=== PATIENT | male | born 1970 | race Caucasian/White ===

== ENCOUNTER 2018-01-01 15:08 | Emergency (ER) | payer MEDICAID, OTHER ==
[~2018-01-01] VITALS: Ht 177.8 cm; Wt 83.9 kg
[2018-01-01] MEDS ORDERED: NS IV 1000 ML 1,000 ML IV ONE (15:46)
[2018-01-01 15:58] LABS: BASOPHILS # (AUTO) 0.1 10^3/uL (0.0-0.1); BASOPHILS % (AUTO) 1 % (0-10); EOSINOPHILS # (AUTO) 0.3 10^3/uL (0.0-0.3); EOSINOPHILS % (AUTO) 3 % (0-10); HEMATOCRIT 39 % (40-54); HEMOGLOBIN 13.6 G/DL (13.3-17.7); LYMPHOCYTES # (AUTO) 2.1 X 10^3 (1.0-4.0); LYMPHOCYTES % (AUTO) 23 % (12-44); MEAN CORPUSCULAR HEMOGLOBIN 32 PG (25-34); MEAN CORPUSCULAR HGB CONC 35 G/DL (32-36); MEAN CORPUSCULAR VOLUME 92 FL (80-99); MEAN PLATELET VOLUME 9.3 FL (7.4-10.4); MONOCYTES # (AUTO) 1.1 X 10^3 (0.0-1.0); MONOCYTES % (AUTO) 12 % (0-12); NEUTROPHILS # (AUTO) 5.5 X 10^3 (1.8-7.8); NEUTROPHILS % (AUTO) 61 % (42-75); PLATELET COUNT 243 10^3/uL (130-400); RED BLOOD COUNT 4.22 10^6/uL (4.35-5.85); RED CELL DISTRIBUTION WIDTH 13.2 % (10.0-14.5)
[2018-01-01] MEDS ORDERED: TETANUS,DIPTH,PERTUSS P/F (BOOSTRIX) 0.5 ML VIAL IM ONE (16:00)
[2018-01-01] MEDS ORDERED: cefTRIAXone INJECTION 1,000 MG in NS (IVPB) 50 ML IV ONE (16:00)
--- NOTE | 2018-01-01 16:01 | ED General ---
General Stated Complaint: STOMACH PAIN/L FOOT BIG TOE ISSUES Source of Information: Patient Exam Limitations: No Limitations, Intoxication (consumed 8-9 beers and a pint of liquor earlier today) (JONATHAN BELTRE MEDICAL STUDENT) History of Present Illness Date Seen by Provider: Jan 01, 2018 Time Seen by Provider: 15:40 Initial Comments Pt is 47 yo homeless alcoholic male who presents c/o abd pain onset 2-3 days ago. Describes the pain as diffuse and constant, only improving recently with an OTC anti-diarrheal. Experienced several episodes of diarrhea associated with the pain. He denies nauseated, one episode of nausea which he believes was associated with some food he ingested. States this pain & diarrhea first began when he awoke having soiled himself at a [employer] in [place], where he was evaluated by EMS. His abd pain does not radiate. He is an alcoholic, typically consuming 1-2 fifths of liquor daily. He has consumed 8-9 beers and a pint of liquor today. He also complains of left foot pain associated with an avulsed toenail from his left great toe. He primarily walks for transportation, and was wearing shoes that were too small, which he believes caused the nail to fall off. Timing/Duration: 2-3 Days Severity: Moderate Modifying Factors: improves with Medication (improved with OTC anti-diarrheal ) Associated Systoms: No Chest Pain, No Fever/Chills, No Nausea/Vomiting; Other ( L foot pain & nail avulsion) (JONATHAN BELTRE MEDICAL STUDENT) Allergies and Home Medications Allergies Coded Allergies: No Known Drug Allergies (Unverified , 01/01/18) Home Medications Famotidine 20 Mg Tablet, 20 MG PO BID Prescribed by: MEREDITH QUINTANILLA on 01/01/181710 Sulfamethoxazole/Trimethoprim 1 Each Tablet, 1 EACH PO BID Prescribed by: MEREDITH QUINTANILLA on 01/01/18 171 Patient Home Medication List Home Medication List Reviewed: Yes (MEREDITH GUILLERMO MD) Review of Systems Constitutional: No chills, No fever Respiratory: No cough, No short of breath Cardiovascular: No chest pain Gastrointestinal: abdominal pain; No constipation; diarrhea; No nausea; vomiting (single episode) Skin: pruritus (near site of prior tick bite); No rash (JONATHAN BELTRE MEDICAL STUDENT) Constitutional: other (intoxicated) EENTM: no symptoms reported Respiratory: no symptoms reported Cardiovascular: no symptoms reported Gastrointestinal: see HPI Genitourinary: no symptoms reported Musculoskeletal: no symptoms reported Skin: see HPI Psychiatric/Neurological: No Symptoms Reported Hematologic/Lymphatic: No Symptoms Reported (MEREDITH GUILLERMO MD) Past Omhvrri-Khcbvr-Cvfefj Hx Past Med/Social Hx: Reviewed and Corrections made (MEREDITH GUILLERMO MD) Patient Social History Recent Foreign Travel: No Contact w/Someone Who Travel: No (JONATHAN BELTRE MEDICAL STUDENT) Alcohol Use: Rarely Uses Alcohol Beverage of Choice: Beer, Other (Drinks beer and hard alcohol) Recreational Drug Use: No (MEREDITH GUILLERMO MD) Past Medical History Surgeries: Yes (Knee, shoulder, face, thumb) Respiratory: No Cardiac: No Neurological: No Reproductive Disorders: No Genitourinary: No Gastrointestinal: No Musculoskeletal: No Endocrine: No HEENT: No Cancer: No Psychosocial: Yes (alcoholism) (MEREDITH GUILLERMO MD) Physical Exam Vital Signs Vital Signs - First Documented 01/01/18 15:15 Temp 98.3 Pulse 101 Resp 18 B/P (MAP) 111/83 (92) Pulse Ox 99 (MEREDITH GUILLERMO MD) Vital Signs Capillary Refill : (JONATHAN BELTRE MEDICAL STUDENT) Height, Weight, BMI Height: '" Weight: lbs. oz. kg; BMI Method: (JONATHAN BELTRE MEDICAL STUDENT) General Appearance: No Apparent Distress, WD/WN, Other (intoxicated) HEENT: PERRL/EOMI, Normal ENT Inspection Neck: Normal Inspection Respiratory: Lungs Clear, Normal Breath Sounds, No Accessory Muscle Use, No Respiratory Distress Cardiovascular: Regular Rate, Rhythm, No Edema, No Murmur Gastrointestinal: Normal Bowel Sounds, Soft, Tenderness (mild in the epigastric region) Extremity: Pedal Edema, Other (complete avulsion of the left great toenail with serosanguineous drainage) Neurologic/Psychiatric: Alert, Oriented x3, No Motor/Sensory Deficits, Normal Mood/Affect, manager sterile processing II-XII Norm as Tested, Other (alert and oriented but intoxicated) Skin: Normal Color, Warm/Dry (MEREDITH GUILLERMO MD) Progress/Results/Core Measures Suspected Sepsis SIRS Temperature: Pulse: Respiratory Rate: Laboratory Tests 01/01/18 15:50: White Blood Count 9.0 Blood Pressure / Mean: Laboratory Tests 01/01/18 15:50: Creatinine 0.82, Platelet Count 243, Total Bilirubin 0.5 (ALEX,JONATHAN MEDICAL STUDENT) Results/Orders Lab Results Laboratory Tests Test 01/01/18 15:50 Range/Units White Blood Count 9.0 4.3-11.0 10^3/uL Red Blood Count 4.22 L 4.35-5.85 10^6/uL Hemoglobin 13.6 13.3-17.7 G/DL Hematocrit 39 L 40-54 % Mean Corpuscular Volume 92 80-99 FL Mean Corpuscular Hemoglobin 32 25-34 PG Mean Corpuscular Hemoglobin Concent 35 32-36 G/DL Red Cell Distribution Width 13.2 10.0-14.5 % Platelet Count 243 130-400 10^3/uL Mean Platelet Volume 9.3 7.4-10.4 FL Neutrophils (%) (Auto) 61 42-75 % Lymphocytes (%) (Auto) 23 12-44 % Monocytes (%) (Auto) 12 0-12 % Eosinophils (%) (Auto) 3 0-10 % Basophils (%) (Auto) 1 0-10 % Neutrophils # (Auto) 5.5 1.8-7.8 X 10^3 Lymphocytes # (Auto) 2.1 1.0-4.0 X 10^3 Monocytes # (Auto) 1.1 H 0.0-1.0 X 10^3 Eosinophils # (Auto) 0.3 0.0-0.3 10^3/uL Basophils # (Auto) 0.1 0.0-0.1 10^3/uL Sodium Level 145 135-145 MMOL/L Potassium Level 3.5 L 3.6-5.0 MMOL/L Chloride Level 110 H 98-107 MMOL/L Carbon Dioxide Level 23 21-32 MMOL/L Anion Gap 12 5-14 MMOL/L Blood Urea Nitrogen 6 L 7-18 MG/DL Creatinine 0.82 0.60-1.30 MG/DL Estimat Glomerular Filtration Rate > 60 BUN/Creatinine Ratio 7 Glucose Level 102 70-105 MG/DL Calcium Level 9.1 8.5-10.1 MG/DL Total Bilirubin 0.5 0.1-1.0 MG/DL Aspartate Amino Transf (AST/SGOT) 21 5-34 U/L Alanine Aminotransferase (ALT/SGPT) 19 0-55 U/L Alkaline Phosphatase 96 40-136 U/L Total Protein 6.5 6.4-8.2 GM/DL Albumin 3.9 3.2-4.5 GM/DL Lipase 67 8-78 U/L Serum Alcohol 197 H <10 MG/DL (MEREDITH GUILLERMO MD) My Orders Orders - MEREDITH GUILLERMO MD Cbc With Automated Diff (01/01/18 15:46) Comprehensive Metabolic Panel (01/01/18 15:46) Lipase (01/01/18 15:46) Saline Lock/Iv-Start (01/01/18 15:46) Ns Iv 1000 Ml (Sodium Chloride 0.9%) (01/01/18 15:46) Dipht,Pertuss(Acell),Tet Adult (Boostrix (01/01/18 16:00) Ceftriaxone Injection (Rocephin Injectio (01/01/18 16:00) Alcohol (01/01/18 16:58) Troponin I (01/01/18 17:33) (MEREDITH GUILLERMO MD) Medications Given in ED Current Medications Medications Dose Ordered Sig/Jamel Route Start Time Stop Time Status Last Admin Dose Admin Ceftriaxone Sodium 1000 mg/ Sodium Chloride 50 ml @ 100 mls/hr ONCE ONCE IV 01/01/18 16:00 01/01/18 16:29 DC 01/01/18 16:02 100 MLS/HR Diphtheria/ Tetanus/Acell Pertussis 0.5 ml ONCE ONCE IM 01/01/18 16:00 01/01/18 16:01 DC 01/01/18 16:56 0.5 ML Sodium Chloride 1,000 ml @ 0 mls/hr Q0M ONCE IV 01/01/18 15:46 01/01/18 15:48 DC 01/01/18 16:01 0 MLS/HR (MEREDITH GUILLERMO MD) Vital Signs/I&O 01/01/18 01/01/18 15:15 17:12 Temp 98.3 98.3 Pulse 101 101 Resp 18 18 B/P (MAP) 111/83 (92) 111/83 (92) Pulse Ox 99 99 (MEREDITH GUILLERMO MD) Vital Signs/I&O Capillary Refill : (JONATHAN BELTRE MEDICAL STUDENT) Progress Note : Progress Note This patient was interviewed, seen, and examined by me personally along with Jonathan Beltre, MS3. I agree with his history and assessment with the following additions. This patient is homeless and [place] [facility]. He reports having a massive episode of diarrhea at a [employer] in [place] a few days ago. He was taken by EMS to the hospital where he was hydrated and assessed. Today he reports having worsening epigastric pain until he took [id number] antidiarrheal medication. For the last couple hours the pain has actually been better and he has not had any further diarrhea. Patient drinks heavily and drank perhaps 8 or 9 beers today as well as some hard alcohol. He does appear intoxicated although he is alert and oriented. Patient also complains of injury to the left great toe. He is apparently somehow completely avulsed his left great toenail. He believes this happened because of wearing shoes that are too small. Exam: Gen.: Alert, oriented, intoxicated HEENT: Normocephalic and atraumatic, mucous membranes moist Heart: Regular rate and rhythm without murmur Lungs: Clear auscultation bilaterally with normal effort Abdomen: Soft, mild tenderness in the epigastrium, soft, no masses Extremities: No edema, there is avulsion of the left great toenail. There is drainage of serosanguineous fluid from the nail bed. There is localized erythema proximal to the nailbed. The toe is not particularly tender. Neuropsych: Alert and oriented with no focal deficits. Patient appears intoxicated Patient was hydrated with IV fluids. A tetanus booster was administered. There was concern for possible early infection of the toe with erythema proximal to the toenail. A gram of Rocephin was administered. Patient was prescribed Bactrim. For his abdominal pain he was advised to discontinue consuming alcohol. He already carries a prescription of Librium with him to take in the event he should decide to quit drinking. He was advised to take an antacid such as famotidine. (MEREDITH GUILLERMO MD) Departure Impression Primary Impression: Epigastric pain Additional Impressions: Diarrhea Qualified Codes: R19.7 - Diarrhea, unspecified Alcohol intoxication Qualified Codes: F10.929 - Alcohol use, unspecified with intoxication, unspecified Avulsion of toenail of left foot Disposition: 01 HOME, SELF-CARE Condition: Improved Departure-Patient Inst. Referrals: NO,LOCAL PHYSICIAN (PCP/Family) Primary Care Physician Patient Instructions: Acute Abdomen (Belly Pain), Alcohol Abuse and Alcoholism (DC) Add. Discharge Instructions: Work toward reduction of alcohol consumption and eventually quit alcohol. Use Librium as prescribed when you try to quit. Please establish with a primary care provider soon as possible. Seek assistance with alcohol cessation. Some resources have been provided to you in this discharge packet. Return to care if you have worsening symptoms. Complete your antibiotic as prescribed. Keep the toe clean and dry except for normal showering. Monitor for signs of infection such as increasing redness, increasing swelling, fever, or puslike drainage. Return to care if you notice these symptoms. Until the toe dries and stops draining apply antibiotic ointment and change the dressing at least once daily. Obtain an inexpensive an acid such as the famotidine prescribed and use as directed. Scripts Famotidine (Acid Pacu Nurse (FAMOTIDINE)) 20 Mg Tablet 20 MG PO BID, #60 TAB Prov: MEREDITH GUILLERMO MD 01/01/18 Sulfamethoxazole/Trimethoprim (Bactrim Ds Tablet) 1 Each Tablet 1 EACH PO BID, #14 TAB Prov: MEREDITH GUILLERMO MD 01/01/18 JONATHAN BELTRE MEDICAL STUDENT Jan 01, 2018 16:01 MEREDITH GUILLERMO MD Jan 01, 2018 17:01
[2018-01-01 16:16] LABS: ALANINE AMINOTRANSFERASE 19 U/L (0-55); ALBUMIN 3.9 GM/DL (3.2-4.5); ALKALINE PHOSPHATASE 96 U/L (40-136); BILIRUBIN,TOTAL 0.5 MG/DL (0.1-1.0); BUN/CREATININE RATIO 7; CALCIUM 9.1 MG/DL (8.5-10.1); CARBON DIOXIDE 23 MMOL/L (21-32); CHLORIDE 110 MMOL/L (98-107); CREATININE SERUM 0.82 MG/DL (0.60-1.30); GFR ESTIMATED > 60; GLUCOSE 102 MG/DL (70-105); LIPASE 67 U/L (8-78); POTASSIUM 3.5 MMOL/L (3.6-5.0); SODIUM 145 MMOL/L (135-145); TOTAL PROTEIN 6.5 GM/DL (6.4-8.2)
[2018-01-01] MEDS ORDERED: SULF1TAB35 PO (17:11)
[2018-01-01] MEDS ORDERED: FAMO20TA3 PO (17:11)
[2018-01-01 17:12] VITALS: BP 111/83
== END 2018-01-01 17:20 | disposition home or self-care (01) ==
LOC: ER 15:10
DX: S91.202A Unspecified open wound of left great toe with damage to nail, initial encounter (principal); R10.13 Epigastric pain; R19.7 Diarrhea, unspecified; F10.229 Alcohol dependence with intoxication, unspecified; Z23 Encounter for immunization; X58.XXXA Exposure to other specified factors, initial encounter
CPT/HCPCS: 36415; 80053; 80320; 83690; 85025; 90471; 90715; 96361; 96365

== ENCOUNTER 2018-01-02 07:09 | Inpatient (IN) | payer MEDICAID, OTHER ==
[~2018-01-02] VITALS: Ht 177.8 cm; Wt 86.2 kg
[2018-01-02] VITALS (8 sets, daily range): BP systolic 97–115; BP diastolic 58–70
[~2018-01-02 07:09] MED LIST: FAMO20TA3 PO; SULF1TAB35 PO
[2018-01-02] MEDS ORDERED: FAMOTIDINE 20 MG (PEPCID) TABLET PO STA (07:15)
[2018-01-02] MEDS ORDERED: THIAMINE INJECTION 100 MG, FOLIC ACID INJECTION 1 MG, VITAMIN MULTI INJECTION 10 ML, MA... IV STA ×5 (07:15)
[2018-01-02] MEDS ORDERED: LIDOCAINE 2% VISCOUS 15 ML UDC PO ONE (07:15)
[2018-01-02] MEDS ORDERED: ANTACID SUSP 30 ML UDC (MYLANTA) PO ONE (07:15)
[2018-01-02] MEDS ORDERED: ONDANSETRON 4 MG/2 ML (SDV) Z0FRAN IVP ONE ×2 (07:15→10:00)
--- NOTE | 2018-01-02 07:29 | ED GI ---
General Stated Complaint: ABD PAIN Source of Information: Patient, EMS Exam Limitations: No Limitations History of Present Illness Date Seen by Provider: Jan 02, 2018 Time Seen by Provider: 07:13 Initial Comments Patient is brought in by EMS walking to the bed with chief complaint of one week diarrhea, cramping and upset stomach. He says he has been drinking quite a bit of alcohol beer, liquor, wine, vodka whatever he can get his hands on. He smokes cigarettes laceration confined he is homeless. He says he's used and he claims a gallon of antidiarrheal Kaopectate or Pepto-Bismol and can't get it to stop. He does not remember being seen yesterday. He is not having any black tarry stools or blood in his diarrhea. He is not having any chest pain or shortness of breath, fevers chills, nausea or vomiting. He does not have any known medical history. Allergies and Home Medications Allergies Coded Allergies: No Known Drug Allergies (Unverified , 01/01/18) Home Medications No Active Prescriptions or Reported Meds Patient Home Medication List Home Medication List Reviewed: Yes Review of Systems Constitutional: No chills, No diaphoresis, No fever, No malaise EENTM: No Blurred Vision, No Double Vision Respiratory: Denies Cough, Denies Shortness of Air Cardiovascular: Denies Chest Pain, Denies Edema Gastrointestinal: See HPI; Denies Abdomen Distended; Abdominal Pain; Denies Constipated; Diarrhea, Nausea; Denies Poor Fluid Intake; Vomiting Genitourinary: Denies Burning, Denies Discharge Musculoskeletal: No back pain, No joint pain Skin: No pruritus, No rash Past Ejkcczq-Fjwklj-Ljwmnj Hx Patient Social History Alcohol Beverage of Choice: Beer, Other Type Used: Cigarettes 2nd Hand Smoke Exposure: Yes Recent Foreign Travel: No Contact w/Someone Who Travel: No Recent Hopitalizations: No Seasonal Allergies Seasonal Allergies: No Past Medical History Surgeries: Yes (Knee, shoulder, face, thumb) Orthopedic Respiratory: No Cardiac: No Neurological: No Reproductive Disorders: No Genitourinary: No Gastrointestinal: No Musculoskeletal: No Endocrine: No HEENT: No Cancer: No Psychosocial: Yes (alcoholism) Blood Disorders: No Physical Exam Vital Signs Vital Signs - First Documented 01/02/18 07:32 Temp 97.8 Pulse 90 Resp 18 B/P (MAP) 121/84 (96) Pulse Ox 98 Capillary Refill : Height/Weight/BMI Height: 5'10.00" Weight: 185lbs. 0oz. 83.981468ma; BMI Method:Stated General Appearance: WD/WN, mild distress HEENT: PERRL/EOMI, pharynx normal Respiratory: no respiratory distress, no accessory muscle use Cardiovascular: normal peripheral pulses, regular rate, rhythm Gastrointestinal: normal bowel sounds, no organomegaly, tenderness ( midepigastric and right upper quadrant) Neurologic/Psychiatric: alert, normal mood/affect, oriented x 3 Skin: normal color, warm/dry Progress/Results/Core Measures Results/Orders Lab Results Laboratory Tests Test 01/02/18 07:20 01/02/18 09:14 Range/Units White Blood Count 8.6 4.3-11.0 10^3/uL Red Blood Count 4.06 L 4.35-5.85 10^6/uL Hemoglobin 13.2 L 13.3-17.7 G/DL Hematocrit 38 L 40-54 % Mean Corpuscular Volume 94 80-99 FL Mean Corpuscular Hemoglobin 33 25-34 PG Mean Corpuscular Hemoglobin Concent 35 32-36 G/DL Red Cell Distribution Width 13.4 10.0-14.5 % Platelet Count 229 130-400 10^3/uL Mean Platelet Volume 8.9 7.4-10.4 FL Neutrophils (%) (Auto) 65 42-75 % Lymphocytes (%) (Auto) 21 12-44 % Monocytes (%) (Auto) 9 0-12 % Eosinophils (%) (Auto) 4 0-10 % Basophils (%) (Auto) 1 0-10 % Neutrophils # (Auto) 5.7 1.8-7.8 X 10^3 Lymphocytes # (Auto) 1.8 1.0-4.0 X 10^3 Monocytes # (Auto) 0.8 0.0-1.0 X 10^3 Eosinophils # (Auto) 0.4 H 0.0-0.3 10^3/uL Basophils # (Auto) 0.1 0.0-0.1 10^3/uL Sodium Level 144 135-145 MMOL/L Potassium Level 3.3 L 3.6-5.0 MMOL/L Chloride Level 109 H 98-107 MMOL/L Carbon Dioxide Level 21 21-32 MMOL/L Anion Gap 14 5-14 MMOL/L Blood Urea Nitrogen 14 7-18 MG/DL Creatinine 0.98 0.60-1.30 MG/DL Estimat Glomerular Filtration Rate > 60 BUN/Creatinine Ratio 14 Glucose Level 98 70-105 MG/DL Calcium Level 8.4 L 8.5-10.1 MG/DL Magnesium Level 1.8 1.8-2.4 MG/DL Total Bilirubin 0.3 0.1-1.0 MG/DL Aspartate Amino Transf (AST/SGOT) 21 5-34 U/L Alanine Aminotransferase (ALT/SGPT) 20 0-55 U/L Alkaline Phosphatase 87 40-136 U/L Total Protein 6.3 L 6.4-8.2 GM/DL Albumin 3.8 3.2-4.5 GM/DL Lipase 1640 H 8-78 U/L Serum Alcohol 200 H <10 MG/DL Urine Color YELLOW Urine Clarity CLEAR Urine pH 6 5-9 Urine Specific [place] 1.015 L 1.016-1.022 Urine Protein NEGATIVE NEGATIVE Urine Glucose (UA) NEGATIVE NEGATIVE Urine Ketones 2+ H NEGATIVE Urine Nitrite NEGATIVE NEGATIVE Urine Bilirubin NEGATIVE NEGATIVE Urine Urobilinogen NORMAL NORMAL MG/DL Urine Leukocyte Esterase NEGATIVE NEGATIVE Urine RBC (Auto) NEGATIVE NEGATIVE Urine RBC NONE /HPF Urine WBC RARE /HPF Urine Crystals NONE /LPF Urine Bacteria NEGATIVE /HPF Urine Casts NONE /LPF Urine Mucus NEGATIVE /LPF Urine Culture Indicated NO My Orders Orders - DARNELL NELSON Alcohol (01/02/18 07:15) Cbc With Automated Diff (01/02/18 07:15) Comprehensive Metabolic Panel (01/02/18 07:15) Lipase (01/02/18 07:15) Magnesium (01/02/18 07:15) Ua Culture If Indicated (01/02/18 07:15) Ondansetron Injection (Zofran Injectio (01/02/18 07:15) Lidocaine 2% Viscous 15 Ml (Xylocaine Vi (01/02/18 07:15) Famotidine Tablet (Pepcid Tablet) (01/02/18 07:15) Antacid Suspension (Mylanta Suspension (01/02/18 07:15) Saline Lock/Iv-Start (01/02/18 07:15) Thiamine Injection (Vitamin B-1 Injectio (01/02/18 07:15) Medications Given in ED Current Medications Medications Dose Ordered Sig/Jamel Route Start Time Stop Time Status Last Admin Dose Admin Al Hydrox/Mg Hydrox/Simethicone 30 ml ONCE ONCE PO 01/02/18 07:15 01/02/18 07:19 DC 01/02/18 07:31 30 ML Lidocaine HCl 15 ml ONCE ONCE PO 01/02/18 07:15 01/02/18 07:19 DC 01/02/18 07:31 15 ML Ondansetron HCl 4 mg ONCE ONCE IVP 01/02/18 07:15 01/02/18 07:19 DC 01/02/18 07:31 4 MG Vital Signs/I&O 01/02/18 07:32 Temp 97.8 Pulse 90 Resp 18 B/P (MAP) 121/84 (96) Pulse Ox 98 Progress Progress Note : Time: 09:46 Progress Note Pancreatitis likely secondary to alcohol. He is not diabetic and we'll check some triglycerides. He doesn't have an elevation in his white count and his pain is improved moderately with just an initial dose of medications so we will dispense with imaging as an abscess will be very unlikely. We'll give him some pain and nausea medicine as it did vomit once since he has been here. Plan to get him admitted. Departure Communication (Admissions) Time/Spoke to Admitting Phy: 09:49 Raheemgers: Discussed case lab and findings and he agrees take the patient. Impression Primary Impression: Pancreatitis Qualified Codes: K85.20 - Alcohol induced acute pancreatitis without necrosis or infection Additional Impression: Alcoholism Disposition: ADMITTED INPATIENT Condition: Stable Admissions Decision to Admit Reason: Admit from ER (General) Decision to Admit/Date: Jan 02, 2018 Time/Decision to Admit Time: 09:49 Departure-Patient Inst. Referrals: NO,LOCAL PHYSICIAN (PCP/Family) Primary Care Physician Scripts No Active Prescriptions or Reported Meds DARNELL NELSON Jan 02, 2018 07:29
[2018-01-02 07:32] LABS: BASOPHILS # (AUTO) 0.1 10^3/uL (0.0-0.1); BASOPHILS % (AUTO) 1 % (0-10); EOSINOPHILS # (AUTO) 0.4 10^3/uL (0.0-0.3); EOSINOPHILS % (AUTO) 4 % (0-10); HEMATOCRIT 38 % (40-54); HEMOGLOBIN 13.2 G/DL (13.3-17.7); LYMPHOCYTES # (AUTO) 1.8 X 10^3 (1.0-4.0); LYMPHOCYTES % (AUTO) 21 % (12-44); MEAN CORPUSCULAR HEMOGLOBIN 33 PG (25-34); MEAN CORPUSCULAR HGB CONC 35 G/DL (32-36); MEAN CORPUSCULAR VOLUME 94 FL (80-99); MEAN PLATELET VOLUME 8.9 FL (7.4-10.4); MONOCYTES # (AUTO) 0.8 X 10^3 (0.0-1.0); MONOCYTES % (AUTO) 9 % (0-12); NEUTROPHILS # (AUTO) 5.7 X 10^3 (1.8-7.8); NEUTROPHILS % (AUTO) 65 % (42-75); PLATELET COUNT 229 10^3/uL (130-400); RED BLOOD COUNT 4.06 10^6/uL (4.35-5.85); RED CELL DISTRIBUTION WIDTH 13.4 % (10.0-14.5); WHITE BLOOD COUNT 8.6 10^3/uL (4.3-11.0)
[2018-01-02 07:52] LABS: ALANINE AMINOTRANSFERASE 20 U/L (0-55); ALBUMIN 3.8 GM/DL (3.2-4.5); ALKALINE PHOSPHATASE 87 U/L (40-136); BILIRUBIN,TOTAL 0.3 MG/DL (0.1-1.0); BUN/CREATININE RATIO 14; CALCIUM 8.4 MG/DL (8.5-10.1); CARBON DIOXIDE 21 MMOL/L (21-32); CHLORIDE 109 MMOL/L (98-107); CREATININE SERUM 0.98 MG/DL (0.60-1.30); GFR ESTIMATED > 60; GLUCOSE 98 MG/DL (70-105); MAGNESIUM 1.8 MG/DL (1.8-2.4); POTASSIUM 3.3 MMOL/L (3.6-5.0); SODIUM 144 MMOL/L (135-145); TOTAL PROTEIN 6.3 GM/DL (6.4-8.2)
[2018-01-02 08:12] LABS: LIPASE 1640 U/L (8-78)
[2018-01-02 09:22] LABS: BILIRUBIN,URINE NEGATIVE (NEGATIVE); CLARITY,URINE CLEAR; COLOR,URINE YELLOW; GLUCOSE, URINE (UA) NEGATIVE (NEGATIVE); KETONES,URINE 2+ (NEGATIVE); LEUKOCYTE ESTERASE ,URINE NEGATIVE (NEGATIVE); NITRITE,URINE NEGATIVE (NEGATIVE); PH,URINE 6 (5-9); PROTEIN,URINE NEGATIVE (NEGATIVE); UROBILINOGEN,URINE NORMAL (NORMAL)
[2018-01-02 09:33] LABS: BACTERIA,URINE NEGATIVE /HPF; WBC,URINE RARE /HPF
[2018-01-02] MEDS ORDERED: fentaNYL INJECTION 100 MCG/2 ML AMP IVP ONE (10:00)
[2018-01-02] MEDS ORDERED: PANTOPRAZOLE 40 MG/10 ML (PROTONIX) VIAL IV ONE (10:00)
[2018-01-02 11:14] LABS: PROTHROMBIN TIME PATIENT 13.4 SEC (12.2-14.7)
[2018-01-02] MEDS ORDERED: 1/2 NS IV SOLUTION 1,000 ML IV PRN (11:27)
[2018-01-02] MEDS ORDERED: ONDANSETRON 4 MG/2 ML (SDV) Z0FRAN IV PRN (11:30)
[2018-01-02] MEDS ORDERED: LORazepam INJ 2 MG/ML (ATIVAN) VIAL IV PRN (11:30)
[2018-01-02] MEDS ORDERED: SENNA W/DOCUSATE (SENOKOT S) TABLET PO PRN (11:30)
[2018-01-02] MEDS ORDERED: LORazepam INJ 2 MG/ML (ATIVAN) VIAL IM/IV PRN (11:30)
[2018-01-02] MEDS ORDERED: ANTACID SUSP 30 ML UDC (MYLANTA) PO PRN (11:30)
[2018-01-02] MEDS ORDERED: ONDANSETRON 4 MG (ZOFRAN) ORAL DISSOLVE TAB SL PRN (11:30)
[2018-01-02] MEDS ORDERED: LORazepam 1 MG (ATIVAN) TAB PO PRN (11:30)
[2018-01-02] MEDS ORDERED: D5 1/2 NS 1000 ML IV SOLUTION 1,000 ML IV PRN (11:30)
[2018-01-02] MEDS ORDERED: CATHETER FLUSH 10 ML SYR IV PRN (11:45)
[2018-01-02] MEDS: fentaNYL INJECTION 100 MCG/2 ML AMP IV PRN ×5 (11:46→20:55)
[2018-01-02] MEDS: 1/2 NS W/KCL 20 MEQ/L 1,000 ML IV SCH ×2 (11:46→17:36)
[2018-01-03] MEDS: fentaNYL INJECTION 100 MCG/2 ML AMP IV PRN ×10 (00:04→23:17)
[2018-01-03] MEDS: 1/2 NS W/KCL 20 MEQ/L 1,000 ML IV SCH ×5 (00:07→21:05)
[2018-01-03 00:54] VITALS: BP 116/66
[2018-01-03 03:50] VITALS: BP 121/78
[2018-01-03 05:57] LABS: BASOPHILS % (AUTO) 1 % (0-10); EOSINOPHILS # (AUTO) 0.4 10^3/uL (0.0-0.3); EOSINOPHILS % (AUTO) 6 % (0-10); HEMATOCRIT 37 % (40-54); HEMOGLOBIN 12.2 G/DL (13.3-17.7); LYMPHOCYTES # (AUTO) 1.1 X 10^3 (1.0-4.0); LYMPHOCYTES % (AUTO) 21 % (12-44); MEAN CORPUSCULAR HEMOGLOBIN 31 PG (25-34); MEAN CORPUSCULAR HGB CONC 33 G/DL (32-36); MEAN CORPUSCULAR VOLUME 95 FL (80-99); MEAN PLATELET VOLUME 9.5 FL (7.4-10.4); MONOCYTES # (AUTO) 0.4 X 10^3 (0.0-1.0); MONOCYTES % (AUTO) 7 % (0-12); NEUTROPHILS # (AUTO) 3.6 X 10^3 (1.8-7.8); NEUTROPHILS % (AUTO) 65 % (42-75); PLATELET COUNT 182 10^3/uL (130-400); WHITE BLOOD COUNT 5.6 10^3/uL (4.3-11.0)
[2018-01-03 06:17] LABS: BUN/CREATININE RATIO 13; CALCIUM 8.4 MG/DL (8.5-10.1); CARBON DIOXIDE 22 MMOL/L (21-32); CHLORIDE 106 MMOL/L (98-107); CREATININE SERUM 0.62 MG/DL (0.60-1.30); GFR ESTIMATED > 60; GLUCOSE 81 MG/DL (70-105); POTASSIUM 3.7 MMOL/L (3.6-5.0); SODIUM 138 MMOL/L (135-145)
[2018-01-03] MEDS: PANTOPRAZOLE 40 MG/10 ML (PROTONIX) VIAL IV SCH (08:52)
[2018-01-03 08:56] VITALS: BP 124/78
[2018-01-03] MEDS: THIAMINE INJECTION 100 MG, FOLIC ACID INJECTION 1 MG, MAGNESIUM SULFATE 2 GM, VITAMIN M... IV SCH ×5 (09:24)
--- NOTE | 2018-01-03 10:13 | History & Physical-Hospitalist ---
History of Present Illness HPI/Chief Complaint Pt is a 47yoCm with a PMH of alcohol abuse who presented to the ER for abdominal pain. He states his symptoms started 2 days prior and he was seen in the ER but labs were normal and he was discharged. He returned when he pain worsened. He described it as sharp and epigastric. He reports some nausea but denies vomited. He has never had similar pain or pancreatitis. He reports drinking roughly 2 fifths per day. He is interested in alcohol treatment and roughly 15 years ago he was able to stay sober for 3 years. He has withdrawn and has seizures due to withdrawal previously. He is currently homeless and made his way to [place] by [employer]. Source: patient Exam Limitations: no limitations Date Seen 01/03/18 Time Seen by Provider: 10:13 Attending Physician Adan Horton MD PCP No,Local Physician Referring Physician Date of Admission Jan 02, 2018 at 10:00 Home Medications & Allergies Home Medications Reviewed patient Home Medication Reconciliation performed by pharmacy medication reconciliations career guidance technician and/or nursing. Patients Allergies have been reviewed. Allergies Allergies Coded Allergies No Known Drug Allergies (Unverified01/01/18) Past Kcmupml-Bbncsl-Obusvj Hx Past Med/Social Hx: Reviewed Nursing Past Med/Soc Hx Patient Social History Alcohol Use: Regular Use (2 fifths per day) Alcohol Beverage of Choice: Beer, Vodka Recreational Drug Use: No Smoking Status: Current Everyday Smoker Type Used: Cigarettes 2nd Hand Smoke Exposure: Yes Physical Abuse Screen: No Sexual Abuse: No Recent Foreign Travel: No Contact w/other who traveled: No Recent Hopitalizations: No Recent Infectious Disease Expo: No Seasonal Allergies Seasonal Allergies: No Past Medical History Surgeries: Orthopedic Reproductive: No History of Blood Disorders: No Family History Reviewed Nursing Family Hx Patient reports no known family medical history. No Pertinent Family Hx Review of Systems Constitutional: no symptoms reported EENTM: no symptoms reported Respiratory: no symptoms reported Cardiovascular: no symptoms reported Gastrointestinal: see HPI, abdominal pain Musculoskeletal: no symptoms reported Skin: no symptoms reported Psychiatric/Neurological: No Symptoms Reported Physical Exam Physical Exam Vital Signs Vital Signs - First Documented 01/02/18 01/02/18 07:32 10:35 Temp 97.8 Pulse 90 Resp 18 B/P (MAP) 121/84 (96) Pulse Ox 98 O2 Delivery Room Air Capillary Refill : Less Than 3 Seconds Height, Weight, BMI Height: 5'10.00" Weight: 190lbs. 0.0oz. 86.101146dn; 27.4 BMI Method:Stated General Appearance: No Apparent Distress, WD/WN, Anxious HEENT: PERRL/EOMI, Moist Mucous Membranes Neck: Non Tender, Supple Respiratory: Lungs Clear, No Respiratory Distress Cardiovascular: Regular Rate, Rhythm, No Murmur Gastrointestinal: Normal Bowel Sounds, Non Tender, Soft Extremity: Normal Capillary Refill, No Calf Tenderness Neurologic/Psychiatric: Alert, Oriented x3, Normal Mood/Affect Skin: Normal Color, Warm/Dry Results Results/Procedures Labs Laboratory Tests 01/02/18 07:20 01/03/18 05:20 Patient resulted labs reviewed. Assessment/Plan Admission Diagnosis Pancreatitis Admission Status: Inpatient Order (span 2 midnights) Reason for Inpatient Admission: likely needs more than 2 more days for resolution of symptoms Diagnosis/Problems Diagnosis/Problems (1) Pancreatitis Status: Acute Assessment & Plan: Lipase elevated persistent abd pain- will keep NPO Continue pain regimen IVF Qualifiers: Chronicity: acute Pancreatitis type: alcohol induced Acute pancreatitis complication: unspecified Qualified Codes: K85.20 - Alcohol induced acute pancreatitis without necrosis or infection (2) Alcoholism Status: Acute Assessment & Plan: Would like to pursue treatment Social Work consulted [facility] protocol ordered Banana Bag Clinical Quality Measures DVT/VTE Risk/Contraindication: Risk Factor Score Per Nursin RFS Level Per Nursing on Admit: 2=Moderate LAKIA ARGUETA MD Jan 03, 2018 10:13 am
[2018-01-03 12:00] VITALS: BP 119/75
[2018-01-03 16:40] VITALS: BP 120/79
[2018-01-03 19:52] VITALS: BP 124/71
[2018-01-04] VITALS (7 sets, daily range): BP systolic 11–135; BP diastolic 72–82
[2018-01-04] MEDS: 1/2 NS W/KCL 20 MEQ/L 1,000 ML IV SCH ×4 (01:19→18:15)
[2018-01-04] MEDS: fentaNYL INJECTION 100 MCG/2 ML AMP IV PRN ×5 (01:19→11:01)
[2018-01-04] MEDS: PANTOPRAZOLE 40 MG/10 ML (PROTONIX) VIAL IV SCH (08:18)
[2018-01-04] MEDS: THIAMINE INJECTION 100 MG, FOLIC ACID INJECTION 1 MG, MAGNESIUM SULFATE 2 GM, VITAMIN M... IV SCH ×5 (08:18)
[2018-01-04] MEDS ORDERED: MAGNESIUM 1 GM/100 ML IVPB 100 ML IV SCH (10:15)
--- NOTE | 2018-01-04 10:16 | Progress Note-Hospitalist ---
Subjective HPI/CC On Admission Date Seen by Provider: Jan 04, 2018 Time Seen by Provider: 10:08 Pt is a 47yoCm with a PMH of alcohol abuse who presented to the ER for abdominal pain. He states his symptoms started 2 days prior and he was seen in the ER but labs were normal and he was discharged. He returned when he pain worsened. He described it as sharp and epigastric. He reports some nausea but denies vomited. He has never had similar pain or pancreatitis. He reports drinking roughly 2 fifths per day. He is interested in alcohol treatment and roughly 15 years ago he was able to stay sober for 3 years. He has withdrawn and has seizures due to withdrawal previously. He is currently homeless and made his way to [place] by [employer]. Subjective/Events-last exam Pt reports feeling slightly better but still has abd pain. Feels that it may be due to hunger and would like to try diet. Denies any symptoms of withdrawal. Objective Exam Vital Signs Vital Signs Date Time Temp Pulse Resp B/P (MAP) Pulse Ox O2 Delivery O2 Flow Rate FiO2 01/04/18 08:00 97.4 62 18 122/80 (94) 97 Room Air Capillary Refill : Less Than 3 Seconds General Appearance: No Apparent Distress, WD/WN Respiratory: Lungs Clear, No Respiratory Distress Cardiovascular: Regular Rate, Rhythm, No Murmur Gastrointestinal: Normal Bowel Sounds, Non Tender, Soft Neurologic/Psychiatric: Alert, Oriented x3 Results/Procedures Lab Patient resulted labs reviewed. Assessment/Plan Assessment and Plan Assess & Plan/Chief Complaint Pancreatitis Diagnosis/Problems Diagnosis/Problems (1) Pancreatitis Status: Acute Assessment & Plan: Lipase elevated on arrival Will trial enteral feeding today Consult surgery given slow progression Discussed with Dr Pfeiffer Continue pain regimen IVF Qualifiers: Chronicity: acute Pancreatitis type: alcohol induced Acute pancreatitis complication: unspecified Qualified Codes: K85.20 - Alcohol induced acute pancreatitis without necrosis or infection (2) Alcoholism Status: Acute Assessment & Plan: Would like to pursue treatment Social Work consulted [facility] protocol ordered last 24 hour scores range from 10-4 Banana Bag Clinical Quality Measures DVT/VTE Risk/Contraindication: Risk Factor Score Per Nursin RFS Level Per Nursing on Admit: 2=Moderate LAKIA ARGUETA MD Jan 04, 2018 10:15 am
--- NOTE | 2018-01-04 15:05 | Consultation ---
History of Present Illness History of Present Illness Patient Consulted On(rosmery/time) 01/04/18 15:02 Date Seen by Provider: Jan 04, 2018 Time Seen by Provider: 15:02 History of Present Illness Consult requested by Dr. Baires for epigastric abdominal pain and pancreatitis. Patient is a 47-year-old male who states she's been having abdominal pain for approximately one week. He states his been seen in 4 different hospitals during this time. He was seen in the emergency department on 01-01-2018 here. Patient states that the pain is epigastric region as a cramping type pain. No radiation. Moderate severity. Denies any nausea vomiting denies any fever sweats chills shortness of breath or chest pain. Patient drinks approximately 2 fifths of vodka per day. Besides the epigastric abdominal pain he has no other issues at this time he reports. Patient has history of having had trauma and having facial surgery he states. 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 He states that he started liquids today and his abdomen is feeling better and he tolerated the liquids. Allergies and Home Medications Allergies Coded Allergies: No Known Drug Allergies (Unverified , 01/01/18) Home Medications No Active Prescriptions or Reported Meds Patient Home Medication List Home Medication List Reviewed: Yes Past Hqimgbp-Gzexds-Txnadw Hx Patient Social History Alcohol Use: Regular Use (2 fifths per day vodka) Recreational Drug Use: No Smoking Status: Current Everyday Smoker Type Used: Cigarettes 2nd Hand Smoke Exposure: Yes Recent Foreign Travel: No Contact w/Someone Who Travel: No Recent Infectious Disease Expo: No Recent Hopitalizations: No Physical Abuse Screen: No Sexual Abuse: No Seasonal Allergies Seasonal Allergies: No Surgeries History of Surgeries: Yes (Knee, shoulder, face, thumb) Surgeries: Orthopedic Respiratory History of Respiratory Disorde: No Cardiovascular History of Cardiac Disorders: No Neurological History of Neurological Disord: No Reproductive System Hx Reproductive Disorders: No Genitourinary History of Genitourinary Disor: No Gastrointestinal History of Gastrointestinal Di: No Musculoskeletal History of Musculoskeletal Dis: No Endocrine History of Endocrine Disorders: No HEENT History of HEENT Disorders: No Cancer History of Cancer: No Psychosocial History of Psychiatric Problem: Yes (alcoholism) Integumentary History of Skin or Integumenta: No Blood Transfusions History of Blood Disorders: No Family Medical History Significant Family History: No Pertinent Family Hx Family Medial History: Patient reports no known family medical history. Review of Systems-General Constitutional: no symptoms reported EENTM: see HPI Respiratory: no symptoms reported Cardiovascular: no symptoms reported Gastrointestinal: see HPI Genitourinary: no symptoms reported Musculoskeletal: no symptoms reported Skin: no symptoms reported Psychiatric/Neurological: No Symptoms Reported Physical Exam-General Problems Physical Exam Vital Signs Vital Signs - First Documented 01/02/18 01/02/18 07:32 10:35 Temp 97.8 Pulse 90 Resp 18 B/P (MAP) 121/84 (96) Pulse Ox 98 O2 Delivery Room Air Capillary Refill : Less Than 3 Seconds General Appearance: no apparent distress HEENT: normal ENT inspection, other (Right pupil larger than left) Neck: full range of motion, supple Respiratory: lungs clear, no respiratory distress, no accessory muscle use Cardiovascular: regular rate, rhythm Gastrointestinal: non tender, soft; No guarding, No rebound, No tenderness Rectal: deferred Back: normal inspection Extremities: non-tender, other (Left great toe without toenail and superficial wounds) Neurologic/Psychiatric: no motor/sensory deficits, alert, normal mood/affect, oriented x 3 Skin: normal color, warm/dry Lymphatic: no adenopathy Assessment/Plan Assessment/Plan Assessment/Plan Epigastric abdominal pain Pancreatitis Alcohol dependency Patient 47-year-old male with epigastric abdominal pain secondary to pancreatitis. His lipase was elevated. No radiological studies at this time. Patient clinically improving and has been started on diet was advanced as tolerated. If he has any change in condition would consider radiological imaging. Discussed need for alcohol cessation. No surgical intervention at this time. We'll follow. Clinical Quality Measures DVT/VTE Risk/Contraindication: Risk Factor Score Per Nursin RFS Level Per Nursing on Admit: 2=Moderate KATIE MEDEL DO Jan 04, 2018 15:05
[2018-01-04] MEDS: HYDROcodone/APAP 5 MG/325 MG (LORTAB) TAB PO PRN ×2 (15:49→20:57)
[2018-01-05] MEDS: HYDROcodone/APAP 5 MG/325 MG (LORTAB) TAB PO PRN ×3 (02:22→11:33)
[2018-01-05 03:58] VITALS: BP 113/66
[2018-01-05 08:00] VITALS: BP 110/74
--- NOTE | 2018-01-05 08:52 | Progress Note ---
Subjective Date Seen by Provider: Jan 05, 2018 Time Seen by Provider: 08:50 Subjective/Events-last exam Patient states she's feeling better. He is having minimal abdominal discomfort. He is tolerating clear liquid diet. He is not have any fever sweats chills shortness of breath or chest pain. Objective Exam Vital Signs Date Time Temp Pulse Resp B/P (MAP) Pulse Ox O2 Delivery O2 Flow Rate FiO2 01/05/18 08:00 97.1 57 18 110/74 (86) 96 Room Air 01/05/18 03:58 97.5 60 18 113/66 (82) 98 Room Air 01/04/18 23:52 97.2 63 18 111/72 (85) 96 Room Air 01/04/18 20:55 Room Air 01/04/18 19:15 97.8 87 18 123/78 (93) 98 Room Air 01/04/18 16:00 97.9 78 16 125/77 (93) 94 Room Air 01/04/18 12:00 97.4 65 18 135/82 (99) 90 Room Air I & O 01/05/18 07:00 Intake Total 3040 ml Output Total 700 ml Balance 2340 ml Capillary Refill : Less Than 3 Seconds General Appearance: No Apparent Distress, WD/WN HEENT: PERRL/EOMI (Right pupil more dilated than left same as yesterday and patient with this finding), Moist Mucous Membranes Neck: Non Tender, Supple Respiratory: Lungs Clear, No Respiratory Distress Cardiovascular: Regular Rate, Rhythm, No Murmur Gastrointestinal: non tender, soft; No guarding, No rebound, No tenderness Extremity: Normal Capillary Refill, No Calf Tenderness Neurologic/Psychiatric: Alert, Oriented x3 Skin: Normal Color, Warm/Dry Assessment/Plan Assessment/Plan Assessment/Plan Epigastric abdominal pain Pancreatitis Alcohol dependency Patient with continued improvement. He is not having abdominal pain by exam and reporting less discomfort in the epigastric region. Patient tolerating clear liquid diet. No surgical intervention. Patient could possibly be DC'd home later today. Clinical Quality Measures DVT/VTE Risk/Contraindication: Risk Factor Score Per Nursin RFS Level Per Nursing on Admit: 2=Moderate KATIE MEDEL DO Jan 05, 2018 08:52
[2018-01-05] MEDS: PANTOPRAZOLE 40 MG/10 ML (PROTONIX) VIAL IV SCH (09:16)
--- NOTE | 2018-01-05 09:28 | Discharge Inst-Simple/Standard ---
Discharge Inst-Standard Patient Instructions/Follow Up Plan of Care/Instructions/FU: Please follow up with a primary care physician here if you decide to stay or please find a physician in [place] to follow up with. Please work to quit drinking alcohol as well. Activity as Tolerated: Yes Discharge Diet: No Restrictions LAKIA ARGUETA MD Jan 05, 2018 09:23
[2018-01-05 12:00] VITALS: BP 104/61
--- NOTE | 2018-01-05 13:44 | Discharge Summary-Hospitalist ---
Diagnosis/Chief Complaint Date of Admission Jan 02, 2018 at 10:00 am Date of Discharge Discharge Date: Jan 05, 2018 Admission Diagnosis Pancreatitis Discharge Diagnosis (1) Pancreatitis Status: Acute Assessment & Plan: Lipase elevated on arrival Will trial enteral feeding today Consult surgery given slow progression Discussed with Dr Pfeiffer Continue pain regimen IVF (2) Alcoholism Status: Acute Assessment & Plan: Would like to pursue treatment Social Work consulted [facility] protocol ordered last 24 hour scores range from 10-4 Banana Bag Discharge Summary Procedures/Consulations General Surgery- Dr Pfeiffer Discharge Physical Exam Allergies: Coded Allergies: No Known Drug Allergies (Unverified , 01/01/18) Vitals & I&Os Vital Signs Date Time Temp Pulse Resp B/P (MAP) Pulse Ox O2 Delivery O2 Flow Rate FiO2 01/05/18 14:30 58 18 104/61 98 Room Air 01/05/18 12:00 97.8 General Appearance: Alert, Oriented X3 Respiratory: Clear to Auscultation Cardiovascular: Regular Rate Abdominal: Normal Bowel Sounds, Soft, No Tenderness Hospital Course Pt was admitted for alcoholic pancreatitis. He had an unremarkable hospital stay and his symptoms resolved with high volume IV fluid and bowel rest. It was discussed with patient the importance of alcohol cessation but he declined any treatment here. He states he will follow up in his home [facility] to seek alcohol treatment. He was discharged in stable condition. Labs (last 24 hrs) Patient resulted labs reviewed. Discussion & Recommendations Discharge Planning: >30 minutes discharge planning Discharge Home Medications: Active Scripts Active No Active Prescriptions or Reported Medications Instructions to patient/family Please see electronic discharge instructions given to patient. Clinical Quality Measures DVT/VTE Risk/Contraindication: Risk Factor Score Per Nursin RFS Level Per Nursing on Admit: 2=Moderate Problem Qualifiers (1) Pancreatitis: Chronicity: acute Pancreatitis type: alcohol induced Acute pancreatitis complication: unspecified Qualified Codes: K85.20 - Alcohol induced acute pancreatitis without necrosis or infection LAKIA ARGUETA MD Jan 05, 2018 13:44
[2018-01-05 14:30] VITALS: BP 104/61
== END 2018-01-05 14:30 | disposition home or self-care (01) | DRG 440 ==
LOC: EDUNIT# 07:09 → ER 07:12 → 4TH 10:00
PROVIDERS: ADMIT Internal Medicine; ATTEND Internal Medicine
DX: K85.20 Alcohol induced acute pancreatitis without necrosis or infection (principal); F10.20 Alcohol dependence, uncomplicated; F17.210 Nicotine dependence, cigarettes, uncomplicated; Z59.0 Homelessness
CPT/HCPCS: 36415; 80048; 80053; 80320; 81000; 83690; 83735; 84478; 85025; 85610; 85730; 96365; 96366; 96375; 96376